=== PATIENT | male | born 1970 | race Caucasian/White ===

== ENCOUNTER 2016-11-04 23:24 | Inpatient (IN) | payer OTHER ==
[~2016-11-04] VITALS: Ht 175.2 cm; Wt 83.0 kg
--- NOTE | ~2016-11-04 | CON ---
[place], [place] REPORT OF CONSULTATION NAME: KIMMY RALPH UNIT #: [id number] ROOM: [facility] DOCTOR: HERNANDO GONZALEZ MD,WAN BIRTHDATE: [birth year] DOS: 11/05/2016 REASON FOR CONSULTATION: Assess the patient with acute respiratory failure with drug overdose. HISTORY OF PRESENT ILLNESS: This is a 46-year-old white male who has been brought to the Emergency Room. The patient subsequently took different p.r.n.'s for drug overdose with suicide attempt as well as alcohol. The patient has been noted with past history of multiple suicidal attempts at different times as well. He has been admitted to the hospital and noted with alleged intake of lisinopril, Celexa, and possible benzodiazepine. He has been brought to the hospital. The patient has been assessed in the Emergency Room. The patient was noted with changes in mental status at that time. The patient has been intubated and started on mechanical ventilation for the respiratory failure. The patient has been currently noted on the mechanical ventilator. He has been noted with mild QTc prolongation early this morning which has been treated with use of mag sulfate. The patient has been currently admitted to the hospital and receiving the supportive therapy as well as mechanical ventilation. He had not been noted with appropriate improvement in the neurologic status at the present time since hospitalization this morning. The patient remains on mechanical ventilation, assist controlled mode of mechanical ventilation as well. He has not been noted with any hemodynamic instability. REVIEW OF SYSTEMS: For the patient cannot be completed since the patient is already intubated, noted on mechanical ventilator. PAST MEDICAL HISTORY: 1. The patient reported multiple suicidal attempts in the past. The patient with history of major depression and dysthymic disorder and possible personality disorder. 2. History of past deep venous thrombosis, anticoagulation with Coumadin. 3. Past history of CVA. Whether the patient has any residual weakness at this time or not is not clearly known. 4. History of essential hypertension. 5. Past history of described coronary artery disease. 6. History of hyperlipidemia. 7. Past history of marijuana use as well. PAST SURGICAL HISTORY: Described as cardiac catheterization. SOCIAL HISTORY: The patient is not , has been noted with history of tobacco use, unknown quantity. There was history of alcohol use described as well. FAMILY HISTORY: The patient's father is 52 years old with history of coronary artery disease and myocardial infarction. Mother has a history of liver transplant as well. HOME MEDICATIONS: Exactly were unknown, but the patient has been noted with prescription of Xanax, Valium and Lexapro as well as the Coumadin. [place], [place] REPORT OF CONSULTATION NAME: KIMMY RALPH UNIT #: [id number] ROOM: [facility] DOCTOR: HERNANDO GONZALEZ MD,WAN BIRTHDATE: [birth year] DRUG ALLERGIES: Reported with no known drug allergies. PHYSICAL EXAMINATION: GENERAL: This is a 46-year-old male who has been noted currently intubated on mechanical ventilator, height of 5 feet 9 inches and weight of 183 pounds. BMI 27.0. VITAL SIGNS: Shows a temperature noted to be normal since hospitalization from 11/04/2016 until this morning, respiratory rate ranged between 18-24, heart rate of 120 with sinus tachycardia, normal heart rate of 80 and 65. The blood pressure lowest noted as 82/54, patient intubation after that blood pressures recovered and noted normal at 132/77. Intake 364, the output 400 mL since hospitalization. The pulse oxygen saturation on 50% oxygen was recorded 95% saturation. HEENT: The patient is currently intubated, noted on mechanical ventilator. The orogastric tube is in place. NECK: Supple. CARDIOVASCULAR: S1, S2 audible. LUNGS: The patient was noted with [id number]-[id number] decreased breath sounds without any wheezing or crackles. ABDOMEN: Soft, nontender. Bowel sounds present. EXTREMITIES: Show no edema, clubbing or cyanosis. LABORATORY DATA: The urine drug screen for the patient noted THC greater than 50. Ammonia level was noted 23. BMP of the patient on admission, 11/04/2016, was noted essentially normal BMP, except low calcium, but it is not corrected with the albumin. CBC this morning for the patient, WBC count 12.0, hemoglobin 12.7, hematocrit 37.4, platelet count was normal. CBC of the patient that was done previously, WBC count of 12.0, hemoglobin 12.8, hematocrit 37.4, and platelet count was normal. Lactic acid 1.4 early this morning on admission. The INR this morning was noted at 1.[address] scan of the head for the patient, which was done without contrast, 11/05/2016, in the Emergency Room does not show any acute intracranial pathologies. BMP repeated this morning again was noted as normal BMP for this patient. PT/PTT was noted this morning, repeated again, INR of 1.8, PTT 37. Endotracheal aspirate culture for this patient was noted as pending. Gram stain showed moderate white blood cells, few epithelial cells, few gram-positive cocci in pairs and chains, few gram-negative diplococci as well. The arterial blood gas of the patient is 100% oxygen, pH of 7.20, pCO2 of 46, pO2 of 305. Chest x-ray of patient shows endotracheal tube in appropriate position. NG tube in the stomach, mild increased pulmonary venous congestion marking was noted for the patient bilaterally. There were no gross pleural effusions. IMPRESSION: 1. The patient who has been currently noted with acute respiratory failure secondary to drug overdose related to the Celexa, questionable intake of lisinopril as well. Questionable intake for this patient of Xanax and Valium. The drug screen was noted negative for any of those drugs and only noted positive for THC. 2. The patient with change in mental status secondary to drug overdose. [place], [place] REPORT OF CONSULTATION NAME: KIMMY RALPH UNIT #: [id number] ROOM: [facility] DOCTOR: HERNANDO GONZALEZ MD,[facility] BIRTHDATE: [birth year] 3. Acute metabolic and respiratory acidosis secondary to acute drug overdose. 4. History of chronic nicotine dependence. 5. History of alcohol use as well. 6. History of deep venous thrombosis, on anticoagulation, which has noted subtherapeutic INR for this patient at the present time. PLAN OF TREATMENT: Monitor neuro status. The patient has been already given the magnesium sulfate for the mild prolongation QTc interval which is noted, QRS was noted normal. The elevation of CPK and MB in patient, most likely noted as drug induced. Early rhabdomyolysis in patient very likely as the CPK for this patient was noted to be mildly elevated at 428 with MB of 5.3, troponin remains normal. However, cardiac etiology would be considered as well. History of past multiple suicidal attempts in a patient with prolonged psychiatric history including major depression and dysthymic disorder. Plan of treatment: At this time, the feeding will be placed on hold for this patient for the next 24 hours as the patient remains on mechanical ventilator, will be started after that. All the ventilator bundle management has been ordered including use of Peridex. Continue IV Protonix. Continue IV midazolam for patient per recommendation of the drug control center for the sedation purposes. Monitor for any abnormal seizures. Continue to closely monitor mental status. Usual care. Supportive plan of therapy and management. DVT prophylaxis with the use of the Coumadin will suffice. The Coumadin could be resumed for the home dose as well. Supportive plan of therapy and management. Usual treatment. Current finding was noted as noncardiogenic pulmonary edema noted early for this patient related to acute drug overdose. Repeat chest x-ray in the morning as well as order another arterial blood gases to reassess the patient and then make any further change in mechanical ventilation accordingly. Other supportive therapy, plan and management and care. Usual treatment. Supportive care and other medical management, plan of care. Alcohol level was not done for this patient on admission as the patient took the alcohol in the form of beer. A new level for the patient will be ordered today to assess. Bronchodilators will be ordered to continue mobilized secretion for patient while on the mechanical ventilator. Repeat another chest x-ray in the morning as well to reassess the current pulmonary problem. No antibiotic will be needed as there were no signs of acute aspiration. Pneumonia, even if it occurs, it may be considered noninfectious etiology at this time. Total time for pulmonary critical care evaluation and management was 38 minutes. [place], [place] REPORT OF CONSULTATION NAME: KIMMY RALPH UNIT #: [id number] ROOM: [facility] DOCTOR: WAN HARKINS MD BIRTHDATE: [birth year] WAN VILLAGOMEZ MD CM:CONSTR:REPORT OF CONSULTATION 1300 11/06/16 0125 interface
--- NOTE | ~2016-11-04 | PR ---
[place], [place] PROGRESS NOTE NAME: KIMMY RALPH UNIT #: [id number] ROOM: [facility] DOCTOR: WAN HARKINS MD BIRTHDATE: [birth year] DOS: 11/14/2016 SUBJECTIVE: She has been successfully liberated from mechanical ventilator on Monday. He has done well. The patient does not show any symptoms of stridor, coughing, sputum expectoration. ____ noted much more awake and alert at this time. Oxygen supplementation was given for the patient in the form of the nasal cannula. This morning, the patient was seen, he was comfortably resting on his bed. OBJECTIVE: VITAL SIGNS: Showed normal temperature, respiratory rate 19, heart rate 61, blood pressure 149/84____. Pulse oxygen saturation of the patient recorded as 97% saturation on room air. HEENT: Examination shows no new change. NECK: Supple. CARDIOVASCULAR: S1, S2 audible. LUNGS: The patient noted without any wheezing or crackles at the present time. ABDOMEN: Soft, nontender. IMPRESSION: 1. The patient with resolving acute respiratory failure, status post drug overdose. The patient with several medications appeared to be stable at this time. 2. Resolving acute tracheobronchitis with Staphylococcus aureus. 3. History of chronic anticoagulation. The patient currently getting the Coumadin for patient with gradual improvement of the INR with in therapeutic range, still noted subtherapeutic with adjustment of the Coumadin. PLAN OF TREATMENT: From the pulmonary standpoint, the patient would be noted ready for patient discharged to the psychiatric facility for further medical management. In the meantime, continue the patient on current therapy, plan of care as in progress. Usual care. Supportive care. Antibiotic will be switched over from intravenous to oral formulation for patient, as Levaquin for tracheobronchitis Staph aureus. [place], [place] PROGRESS NOTE NAME: KIMMY RALPH UNIT #: [id number] ROOM: [facility] DOCTOR: WAN HARKINS MD BIRTHDATE: [birth year] WAN VILLAGOMEZ MD CM:PNTRANS [id number] WAN GONZALEZ MD 11/14/16 6347 interface
--- NOTE | ~2016-11-04 | CON ---
[place], [place] REPORT OF CONSULTATION NAME: KIMMY RALPH UNIT #: [id number] ROOM: [facility] DOCTOR: HERANNDO GONZALEZ MD,WAN BIRTHDATE: [birth year] DATE: 11/09/16 PULMONARY CRITICAL CARE MANAGEMENT The patient remains intubated. The patient is successful without any complications. He has been started on IV Ativan drip, which has been currently administered 30 mg per hour administration. The patient was noted comfortable at this time without any distress noted. The NG tube of the patient remains in place which has been introduced for the feeding purposes. He has been still noted with excessive secretion production, which has been suctioned out intermittently from the endotracheal aspirate. He remains on the anticoagulation as well. The patient has been noted without any hemodynamic instability. The rectal temperature elevation was noted for this patient intermittently at times. PHYSICAL EXAMINATION: VITAL SIGNS: Highest temperature noted at 101.2 degrees Fahrenheit to normal temperature. The respiratory rate 15-16, heart rate 79-78, blood pressure 106/66-96/53. HEENT: Shows the patient remains orally intubated successfully orogastric tube is in place. NECK: Supple. CARDIOVASCULAR SYSTEM: S1, S2 is audible. LUNGS: The patient was noted without any wheezing or crackles at the present time. ABDOMEN: Soft, nontender. LABORATORY DATA: The chest x-ray of the patient was noted free of any acute major pulmonary infiltration, which were visible. PT/INR today was noted 1.6, which is subtherapeutic. The arterial blood gas, the patient, pH of 7.47, pCO2 of 41, pO2 of 92.6 noted on 30% oxygen assist control mode of mechanical ventilation. BMP today was noted normal BUN and creatinine. Potassium 3.4 that was mildly decreased. IMPRESSION: 1. The patient with acute tracheobronchitis. The patient can be completely excluded for this patient with recent unresponsiveness of the patient and drug overdose with the patient and delirium was also noted. Maximal withdrawal for patient's baclofen was noted usually requiring use of the IV Ativan and reintubation. 2. Rule out any upper airway pathology such as obstruction and other findings. 3. Mild hypokalemia. 4. History of multiple prior suicidal attempts hospitalization, after the patient attempted acute suicide. PLAN OF TREATMENT: Continue nutritional support as tolerated. Continue Ativan, the dose will be gradually decreased the patient weaning off for the next 24 hours prior to possible consideration of liberation from mechanical ventilation. Monitor results of the endotracheal aspirate for this patient at the present time. The temperature noted low grade for the patient, which will monitor. Preliminary culture of the bronchial washing shows normal isaac. Other supportive therapy, plan of management care and treatment. Ventilator bundle management remains in progress as well. Usual care. Total time for pulmonary and critical care evaluation and management was 34 minutes. [place], [place] REPORT OF CONSULTATION NAME: KIMMY RALPH UNIT #: [id number] ROOM: [facility] DOCTOR: WAN HARKINS MD BIRTHDATE: [birth year] WAN HARKINS MD CM:CONSTR:REPORT OF CONSULTATION 1009 11/14/16 1502 SERA ORNELAS MIS.R
--- NOTE | ~2016-11-04 | CON ---
[place], [place] REPORT OF CONSULTATION NAME: KIMMY RALPH UNIT #: [id number] ROOM: [facility] DOCTOR: EMILY RUVALCABA ED.D) BIRTHDATE: [birth year] DOS: 11/14/2016 HISTORY OF PRESENT ILLNESS: Kimmy Ralph is a 46-year-old male referred by Dr. Potter for an evaluation following a suicide attempt. I initially saw this patient on 11/07/2016; however, he was intubated, shortly thereafter and I could not really communicate with him whatsoever. He is presently in the Intensive Care Unit at [facility]. He states that he is and has two children. He has applied for his SSI. His family physician is Dr. Galaviz and his medical history is pertinent for TIA, CVA, hypertension, hypercholesterolemia, DVT, alcohol abuse, and major depressive disorder. His medications have included lisinopril, Celexa, and baclofen. He states he drinks at least 6 beers each day and smokes 2 packs of cigarettes per day. This patient was awake, alert, and oriented in all three spheres. He denies any suicidal ideation or plan. He understands that he is in the hospital because he attempted suicide, but is no longer suicidal. He states he has attempted suicide in the past and was hospitalized in [facility] in [place], [place], several years ago. He does follow with Dr. Amos Waite at psych care here in [place]. Dr. Waite has prescribed Valium and Xanax for this patient. He also was on Celexa, but apparently overdosed on his Celexa. This patient states that he is going to continue to follow with Dr. Waite for both counseling and medication management. He states he is not suicidal now and he is ready to go home once he is medically stable. There is nothing to prevent discharging this patient home because he is denying any suicidal ideation or plan. DIAGNOSES: 1. Major depressive disorder, recurrent. 2. Alcohol abuse. RECOMMENDATIONS: 1. The patient should follow with Dr. Waite at [facility] here in [place]. 2. This patient may be discharged home when he is medically stable. Thank you very much for this consult. EMILY RUVALCABA ED.D CM:CONSTR:REPORT OF CONSULTATION 1702 11/15/16 0227 interface NOEL POTTER MD
--- NOTE | ~2016-11-04 | PR ---
[place], [place] PROGRESS NOTE NAME: KIMMY RALPH UNIT #: [id number] ROOM: [facility] DOCTOR: HERNANDO GONZALEZ MD,WAN BIRTHDATE: [birth year] DOS: 11/10/2016 PULMONARY AND CRITICAL CARE EVALUATION AND MANAGEMENT SUBJECTIVE: He has been continued on IV Ativan drip. Currently the patient has been getting 8 mg of IV Ativan. The mental status has been noted improving. The patient was noted following vocal commands without any distress. The patient remains orally intubated. The culture of the endotracheal aspirate noted as Staph aureus. The patient was started on the Levaquin and further management. The secretion production has been still noted intermittently. OBJECTIVE: VITAL SIGNS: For the patient which has been recorded showed the temperature of the patient noted as normal. Respiratory rate of the patient recorded as 14-16. Heart rate 79-76, blood pressure 124/77-130/80. Intake for the patient is 4040, output 2900 mL. Positive fluid balance approximately 1800 mL, pulse oxygen saturation 95% saturation was recorded as 95%. HEENT: The patient remained orally intubated, orogastric tube is in place. NECK: Supple. CARDIOVASCULAR SYSTEM: S1, S2 audible. LUNGS: The patient was noted without any wheezing or crackles at the present time. ABDOMEN: Soft, nontender. LABORATORY DATA: Endotracheal aspirate noted to have a growth of gram-positive cocci and Staph aureus which noted sensitive to multiple antibiotics including fluoroquinolones. The CMP of the patient done, this morning shows normal BUN and creatinine and other electrolytes. Culture of the urine showed no bacterial growth in 24 hours. PT/INR today noted 1.7, which is subtherapeutic. CBC this morning, hemoglobin 10.1, hematocrit 29.8, normal WBC count and platelet count. CT scan of the chest for the patient that was done yesterday for outpatient ordered by the primary care attending was reviewed. A small pleural fluid noted bilaterally without any evidence of pulmonary infiltration was noted. There was area of consolidation. IMPRESSION: 1. The patient who has been currently noted with acute tracheobronchitis with Staph aureus patient with acute respiratory failure, status post intentional drug overdose with baclofen and also with Celexa. 2. Improvement in mental status was continued as well. 3. Possible edema of the upper airways. PLAN OF TREATMENT: Limited inspection patient was done for the patient with the help of the bronchoscope looking at the vocal cord. The vocal cords were not visualized for patient because of crowding of some structures. There was no definitive mass lesion for this patient, which was grossly visible. The endotracheal tube and the NG tube were noted in appropriate position. The patient's sedation would be gradually decreased and discontinued and after that the patient will be planned for extubation with monitoring closely, post-extubation he will be ordered to resume epinephrine if he develops stridor. [place], [place] PROGRESS NOTE NAME: KIMMY RALPH UNIT #: [id number] ROOM: [facility] DOCTOR: HERNANDO GONZALEZ MD,WAN BIRTHDATE: [birth year] He may require to be reintubated for this patient after that. The patient has been already started antibiotic for acute tracheobronchitis with the Staphylococcus aureus with Levaquin. Bronchodilators at this time to be continued. Continuation of other supportive care including feeding. The orogastric tube will be changed to the NG tube for the patient for the feeding since the patient will be kept n.p.o. initially to prevent any aspiration until the mental status completely resolves. Other supportive therapy, plan of management, care and treatment plan. Supportive care. Usual treatment and care. Total time for pulmonary and critical care evaluation and management was 38 minutes. WAN VILLAGOMEZ MD CM:PNTRANS [id number] WAN GONZALEZ MD 11/10/16 1428 interface
--- NOTE | ~2016-11-04 | CON ---
[place], [place] REPORT OF CONSULTATION NAME: KIMMY RALPH UNIT #: [id number] ROOM: [facility] DOCTOR: NOEL POTTER MD BIRTHDATE: [birth year] DOS: 11/05/2016 CHIEF COMPLAINT: The patient was intubated and nonverbal. HISTORY OF PRESENT ILLNESS: This is a 46-year-old white male who presented to the Emergency Room at [facility] and subsequently sent to the ICU after polysubstance overdose including alcohol. The patient apparently took lisinopril, Celexa, baclofen, and washed it down with four 24-ounce beers. There is also the possibility that he mixed benzodiazepines. A review of his medication list showed that he just recently got a Valium and Xanax prescription filled from Dr. Daniel. In addition, he then got a Celexa prescription filled from his primary care doctor. The patient does have a lengthy psychiatric history with multiple overdose attempts as well as a previous history of cutting. The patient had stated before that if he had a gun, he would have already shot himself; instead, he took this overdose in an apparent suicide attempt. MENTAL STATUS: Limited because I could not examine the patient. DIAGNOSES: Major depression, recurrent, severe; dysthymic disorder; and probable borderline personality disorder. PLAN: Given the severity of this overdose attempt, I do think an inpatient psychiatric hospitalization is warranted at this time to attempt crisis stabilization and further assess lethality. I also think he should sign a release of information, allowing us to contact his providers so that they could know that he is doctor shopping and getting multiple prescriptions from other providers. Given his lethality, this is not a good idea. I would strongly recommend consulting Dr. Stalin Galo to determine a second opinion regarding his need for inpatient stay. NOEL POTTER MD CM:CONSTR:REPORT OF CONSULTATION 0851 11/05/16 1228 interface
--- NOTE | ~2016-11-04 | PR ---
[place], [place] PROGRESS NOTE NAME: KIMMY RALPH UNIT #: [id number] ROOM: [facility] DOCTOR: HERNANDO GONZALEZ MD,WAN BIRTHDATE: [birth year] DOS: 11/11/2016 PULMONARY AND CRITICAL CARE EVALUATION AND MANAGEMENT SUBJECTIVE: The patient remains on mechanical ventilator. The patient has been continued on the mechanical ventilator and liberated from the mechanical ventilation. Sedation has been completely discontinued patient in the last 24 hours. The mental status has been noted variable. The patient has been noted comfortable without any agitation this morning. Sedation remains off patient for the last 24 hours. There has not been 100% complete improvement noted in the mental status at the present time. The patient received the dose of the Ativan for the patient up to 11 mg per hour for the patient prior to complete discontinuation. Hemodynamically, the patient has been noted with low-grade fever. He has not been noted tachycardia with current antibiotic. The patient for the medical Staphylococcus aureus tracheobronchitis. OBJECTIVE: VITAL SIGNS: The patient shows low grade fever of 100.3 degrees Fahrenheit noted, otherwise normal temperature recorded. The respiratory recorded 17-20, heart rate of 86-79, blood pressure 125/76 for patient to 140/84. Intake is 3000; the output 3751 mL, pulse oxygen saturation 96 percent saturation was recorded. HEENT: The patient remained orally intubated with endotracheal tube #8 Korean. NECK: Supple. NG tube noted in place. CARDIOVASCULAR SYSTEM: S1, S2 audible. LUNGS: Noted without any wheeze or crackles at the present time. The breaths are noted mildly decreased bilaterally. ABDOMEN: Soft, nontender. EXTREMITIES: Showed no edema. LABORATORY DATA: INR today noted subtherapeutic 1.3. The BMP of the patient, which was done this morning, was noted normal BUN and creatinine. CBC this morning shows hemoglobin 9.8, hematocrit 29.5, WBC count was normal, platelet count was normal. Blood culture of the patient from the of this month, 2 sets does not show any bacterial growth. The chest x-ray of the patient that was done this morning shows NG tube and the endotracheal tube were both noted in appropriate position. IMPRESSION: 1. The patient who has been currently noted prolonged effects of sedation at this time for the Ativan for this patient with noted persistent change in mental status. 2. The patient with acute drug overdose. The patient with the use of Celexa and the muscle relaxants for the patient such as baclofen. 3. The patient with suboptimal anticoagulation noted at this time with the decreased INR for the patient Coumadin has been continued to be reiterated to maintain a therapeutic INR. 4. Acute tracheobronchitis Staph aureus for this patient as well. PLAN OF TREATMENT: Monitoring the respiratory status, the patient closely. [place], [place] PROGRESS NOTE NAME: KIMMY RALPH UNIT #: [id number] ROOM: [facility] DOCTOR: HERNANDO GONZALEZ MD,WAN BIRTHDATE: [birth year] Haldol could be given for patient p.r.n. for any agitated behavior. Monitor mental status. Consider long-term acute care facility consultation assessment. Continue nutritional support. Other supportive therapy, plan of management. Further change in treatment will be done based on the progression of the illness. Total time pulmonary and critical care evaluation and management was 35 minutes. WAN VILLAGOMEZ MD CM:PNTRANS [id number] WAN GONZALEZ MD 11/14/16 1051 interface
--- NOTE | ~2016-11-04 | PR ---
[place], [place] PROGRESS NOTE NAME: KIMMY RALPH UNIT #: [id number] ROOM: [facility] DOCTOR: HERNANDO GONZALEZ MD,WAN BIRTHDATE: [birth year] DOS: 11/07/2016 PULMONARY CRITICAL CARE EVALUATION AND MANAGEMENT SUBJECTIVE: The patient sedation remains off for this patient, was given Haldol one time for the patient and Ativan last night. The patient has been opening his eyes with the vocal commands and was minimally following vocal commands. He does not have signs of respiratory distress at this time, noted comfortable. The patient has been assessed for the patient this morning for liberation of mechanical ventilator. Rectal temperature noted mildly elevated at 101 degrees Fahrenheit. OBJECTIVE: VITAL SIGNS: Hemodynamically, vital signs of the patient which has been recorded shows the respiratory rate recorded as 18-24, heart rate 92-103, blood pressure 133/60-129/63. Intake is 4800 mL, output 2300 mL. Pulse oxygen saturation with the mechanical ventilator noted as 98% saturation. HEENT: Examination shows the patient is intubated. NECK: Supple. CARDIOVASCULAR SYSTEM: S1, S2 audible. LUNGS: Noted clear. There was no wheezing or crackles. ABDOMEN: Soft, nontender. LABORATORY DATA: Blood culture showed no bacterial growth for this patient in the last 24 hours that was done on 11/05/2016. BMP of the patient noted normal BUN and creatinine. The CPK was still noted elevated 4103 with MB elevated at 14.2. AST was mildly elevated 145, bilirubin 1.4. Phosphorus was 1.8. Urine culture showed no bacterial growth. Chest x-ray, 1 view, which was done this morning for the patient was reviewed, showed endotracheal tube in place without any acute infiltration. INR today noted 1.8, which is still subtherapeutic. CBC of the patient, WBC count 12.9, hemoglobin 10.8, hematocrit 31.6, platelet count of 207,000. ABG this morning, pH of 7.39, pCO2 of 39, pO2 of 128 on 30% oxygen supplementation. IMPRESSION: 1. The patient with acute respiratory failure for this patient, change in mental status and has been liberated from mechanical ventilator this morning. Post-extubation, the patient has been assessed. The patient was noted to be partial improvement in the follow of vocal commands. She has been noted comfortable at this time. 2. The patient with acute rhabdomyolysis secondary to acute drug overdose for this patient has been considered. 3. Resolution of any cardiac dysrhythmia or QTC prolongation. 4. History of multiple suicidal ideation of the patient and suicidal attempt at this time for this patient on admission as well. 5. Mild alcohol intoxication of the patient which has been resolved. 6. Mild hypophosphatemia as well. PLAN OF TREATMENT: Continue IV fluids, bronchodilators. Keep the patient n.p.o., monitor mental status of the patient closely. Continue multivitamins of [place], [place] PROGRESS NOTE NAME: KIMMY RALPH UNIT #: [id number] ROOM: [facility] DOCTOR: HERNANDO GONZALEZ MD,WAN BIRTHDATE: [birth year] the patient infusion and the normal saline. P.r.n. order of Haldol for the patient ordered 5 mg every 4 hours p.r.n. for any agitation, monitor aspiration precautions. Supplementation of the phosphorus intravenously of the patient's sodium phosphate. The patient could be assessed later on for the clear liquids if tolerated, may be advanced to usual diet. Continuation of DVT prophylaxis. Other supportive therapy, plan of management and care as previously. Continue psychiatric followup as well. Total time of pulmonary critical care evaluation and management was 38 minutes. WAN VILLAGOMEZ MD CM:PNTRANS 1019 WAN GONZALEZ MD 11/08/1699 interface
--- NOTE | ~2016-11-04 | PR ---
[place], [place] PROGRESS NOTE NAME: KIMMY RALPH UNIT #: [id number] ROOM: [facility] DOCTOR: HERNANDO GONZALEZ MD,WAN BIRTHDATE: [birth year] DOS: 11/06/2016 PULMONARY CRITICAL CARE EVALUATION AND MANAGEMENT SUBJECTIVE: The patient has been noted restless on the bed, currently getting IV Versed. He has not been noted with any acute hemodynamic instability. The patient also remains afebrile. There has not been any evidence of a marked excessive secretion production from the endotracheal tube was noted. OBJECTIVE: VITAL SIGNS: Showed normal temperature, respiratory rate 12-18, heart rate of 71-63. Blood pressure for the patient recorded as 104/62-106/66. Intake for patient was 3500 mL, output 4800 mL. Pulse oxygen saturation on 30% oxygen 98% saturation recorded. HEENT: Examination shows no new change. NECK: Supple. CARDIOVASCULAR SYSTEM: S1, S2 is audible. LUNGS: The patient was noted without any wheezing or crackles at the present time. ABDOMEN: Soft, nontender. EXTREMITIES: Shows no edema. LABORATORY DATA: CMP this morning for the patient noted BUN 8, creatinine 0.61. Alkaline phosphatase mildly elevated at 124, total bilirubin 1.3. CPK 3079. Phosphorus 2.0. Calcium was 7.9, which was not adjusted to the albumin. The endotracheal aspirate culture was noted as normal isaac. Preliminary final culture results were pending from 15 of this month. INR today was noted at 1.7, which is subtherapeutic. Arterial blood gas on 30% oxygen, pH of 7.35, pCO2 30, pO2 110. Ethyl alcohol level literally noted less than 3. Chest x-ray of the patient that was done this morning for the patient was noted without any acute pulmonary infiltration. Endotracheal tube for the patient was not clearly visible, most likely lining up with line of NG tube. IMPRESSION: 1. The patient with acute respiratory failure with drug overdose secondary to Celexa. 2. Some agitation for the patient was noted. 3. Abnormal liver function testing for this patient most likely related to the current mild rhabdomyolysis for the patient with elevation of CPK level. BUN and creatinine of the patient was noted as normal. 4. History of multiple past suicidal attempts. 5. Chronic anticoagulation for the patient with history of past deep venous thrombosis. PLAN OF TREATMENT: Discontinue sedation for the patient completely at this time. Assessed the mental status for the patient once the patient noted improvement in the mental status, he will be considered liberation from mechanical ventilator. Continue with the other previous treatment as in progress. Hold off the feeding at least until later today if the patient will not be extubated, he will be started on the nutritional support. DVT [place], [place] PROGRESS NOTE NAME: KIMMY RALPH UNIT #: [id number] ROOM: [facility] DOCTOR: HERNANDO GONZALEZ MD,WAN BIRTHDATE: [birth year] prophylaxis in the form of the Coumadin will be sufficed. Continuation of the ventilator bundle management. Usual care. Other supportive plan of management and therapies. Total time of pulmonary critical care evaluation and management was 32 minutes. WAN VILLAGOMEZ MD CM:PNTRANS [id number] WAN GONZALEZ MD 11/07/16 0124 interface
--- NOTE | ~2016-11-04 | CON ---
[place], [place] REPORT OF CONSULTATION NAME: KIMMY RALPH UNIT #: [id number] ROOM: [facility] DOCTOR: EMILY RUVALCABA ED.D (HEMALATHA) BIRTHDATE: [birth year] DOS: 11/07/2016 HISTORY OF PRESENT ILLNESS: The patient is a 46-year-old male referred by Dr. Potter for an evaluation following a suicide attempt. At the present time, he is in the intensive care unit at [facility]. He apparently took multiple medications including lisinopril, Celexa, baclofen, four 24-ounce beers. He does have a medical history of TIA, CVA, hypertension, hypercholesterolemia, deep vein thrombophlebitis and cardiac balloon. He has been treated by Dr. Wa[facility] here in [place]. He apparently has attempted suicide on multiple occasions according to the report. At the present time, he has just been extubated and I will evaluate him completely on Tuesday, November 08, 2016. DIAGNOSIS: Major depressive disorder, recurrent. Thank you very much for this consult. EMILY RUVALCABA ED.D CM:CONSTR:REPORT OF CONSULTATION 1309 11/08/16 0122 interface NOEL POTTER MD
--- NOTE | ~2016-11-04 | CON ---
[place], [place] REPORT OF CONSULTATION NAME: KIMMY RALPH UNIT #: [id number] ROOM: [facility] DOCTOR: SHILPA REYEZ BIRTHDATE: [birth year] DOS: 11/12/2016 PSYCH CONSULT HISTORY OF PRESENT ILLNESS: This patient was brought into the ED where he had taken 40 or more pills of lisinopril, Celexa, and baclofen. He had consumed alcohol and attempted to commit suicide. He has had multiple suicide attempts in the past. He also tested positive for marijuana. A female was present in the emergency room. He had been drinking all day. She called him an idiot and confirmed that he had attempted suicide in the past and stated that if he had a gun he had probably already done it by now. The patient has a history of depression. I could not gather more information, the patient was just extubated this morning, but still quite lethargic and groggy. PAST MEDICAL HISTORY: Depression, DVT, CVA, hyperlipidemia, hypertension, MT, TIAs, marijuana abuse, has had a cardiac cath in the past. He does abuse alcohol and is a smoker. DIAGNOSES: AXIS I: Major depression, severe. MENTAL STATUS: The patient is alert and oriented. Over the next couple of days, I anticipate this will clear a little bit more. He does seem depressed. Could not recall all the antidepressants he has been on in the past. We may need to reach out to the pharmacy to see if he can get some kind of medication or family member's medication history as far as what medications and antidepressants and such he has been on. There are no overt signs of auditory or visual hallucinations, delusions, paranoia, d[place] or hypomania. PLAN: At this point in time, I want the patient to remain extubated, I want to make sure, it is successful extubation, He kind of can wake up from the sedation. He had received some p.r.n. Haldol within the last 24 hours. It should also be noted that his chemistries, his creatinine is still off, his albumin is low, some of his a.m. labs are still pending. He is receiving IV rehydration. At this point in time, probably over the next 24-48 hours, I am not going to start any kind of antidepressant. I want to see if we can find out through nursing and family members what he has been on in the past or if he clears and can remember what he has been on in the past or we can reach out to his pharmacy. Also, I see that Yaneth Streeter and Dr. Galo both had been consulted. Dr. Galo is out of town. I would like a psychologist to talk to him. I think he needs to at least be in the system, some form of regular therapy is going to be more beneficial than just medications since this is not the first attempt at suicide. I will continue to look at the labs over the next couple of days as his creatinine improves and we get some clarification on medications he has been on in the past. I want to be cautious and make sure there is no sedating qualities or increased caution with kidney and liver function since he does have a history of overdosing on pills. Again, I will wait for the psychologist's evaluation and follow up on past antidepressants and antipsychotics he has been on. [place], [place] REPORT OF CONSULTATION NAME: KIMMY RALPH UNIT #: [id number] ROOM: [facility] DOCTOR: SHILPA REYEZ BIRTHDATE: [birth year] ETTA REYEZ CNP CM:CONSTR:REPORT OF CONSULTATION 1006 11/14/16 0518 interface
--- NOTE | ~2016-11-04 | PROC NOTE ---
[place], [place] PROCEDURE NOTE NAME: KIMMY RALPH UNIT #: [id number] ROOM: [facility] DOCTOR: JESSI JONAS DO BIRTHDATE: [birth year] DOS: 11/05/2016 PROCEDURE: Endotracheal intubation. TIME OF THE PROCEDURE: 2:30 a.m. INDICATION: Respiratory distress. ATTENDING: Dr. Villeda. DESCRIPTION OF PROCEDURE: A timeout was performed verifying the correct patient, procedure site, positioning, and special equipment. The patient was placed in a flat position. Sedation was obtained using 100 of etomidate and additionally with 20 of succinylcholine. The patient was easily ventilated using an Ambu bag. Nasopharyngeal airway was also present at the time. The MAC 4 blade was used and inserted into the oropharynx at which time there was a grade 1 view of the vocal cords. An 8-Cymraes endotracheal tube was inserted and visualized going through the vocal cords. The stylet was removed. Coloremic change was visualized on the CO2 meter. Breath sounds were heard in both lung worrell equally and no sounds were heard over the epigastrium. The endotracheal tube was placed at 23 cm measured at the teeth. Dr. Garcia was present for the entire procedure. Chest x-ray was ordered to assess for pneumothorax and verify endotracheal placement. ESTIMATED BLOOD LOSS: Zero. The patient tolerated the procedure well and there were no complications. Jessi Jonas DO OTNY VILLEDA DO CM:PROCNOTE:PROCEDURE NOTE [id number] JESSI JONAS DO
--- NOTE | ~2016-11-04 | CON ---
[place], [place] REPORT OF CONSULTATION NAME: KIMMY RALPH UNIT #: [id number] ROOM: [facility] DOCTOR: HERNANDO GONZALEZ MD,WAN BIRTHDATE: [birth year] DATE: 11/09/16 PULMONARY CRITICAL CARE MANAGEMENT The patient remains intubated. The patient is successful without any complications. He has been started on IV Ativan drip, which has been currently administered 30 mg per hour administration. The patient was noted comfortable at this time without any distress noted. The NG tube of the patient remains in place which has been introduced for the feeding purposes. He has been still noted with excessive secretion production, which has been suctioned out intermittently from the endotracheal aspirate. He remains on the anticoagulation as well. The patient has been noted without any hemodynamic instability. The rectal temperature elevation was noted for this patient intermittently at times. PHYSICAL EXAMINATION: VITAL SIGNS: Highest temperature noted at 101.2 degrees Fahrenheit to normal temperature. The respiratory rate 15-16, heart rate 79-78, blood pressure 106/66-96/53. HEENT: Shows the patient remains orally intubated successfully orogastric tube is in place. NECK: Supple. CARDIOVASCULAR SYSTEM: S1, S2 is audible. LUNGS: The patient was noted without any wheezing or crackles at the present time. ABDOMEN: Soft, nontender. LABORATORY DATA: The chest x-ray of the patient was noted free of any acute major pulmonary infiltration, which were visible. PT/INR today was noted 1.6, which is subtherapeutic. The arterial blood gas, the patient, pH of 7.47, pCO2 of 41, pO2 of 92.6 noted on 30% oxygen assist control mode of mechanical ventilation. BMP today was noted normal BUN and creatinine. Potassium 3.4 that was mildly decreased. IMPRESSION: 1. The patient with acute tracheobronchitis. The patient can be completely excluded for this patient with recent unresponsiveness of the patient and drug overdose with the patient and delirium was also noted. Maximal withdrawal for patient's baclofen was noted usually requiring use of the IV Ativan and reintubation. 2. Rule out any upper airway pathology such as obstruction and other findings. 3. Mild hypokalemia. 4. History of multiple prior suicidal attempts hospitalization, after the patient attempted acute suicide. PLAN OF TREATMENT: Continue nutritional support as tolerated. Continue Ativan, the dose will be gradually decreased the patient weaning off for the next 24 hours prior to possible consideration of liberation from mechanical ventilation. Monitor results of the endotracheal aspirate for this patient at the present time. The temperature noted low grade for the patient, which will monitor. Preliminary culture of the bronchial washing shows normal isaac. Other supportive therapy, plan of management care and treatment. Ventilator bundle management remains in progress as well. Usual care. Total time for pulmonary and critical care evaluation and management was 34 minutes. [place], [place] REPORT OF CONSULTATION NAME: KIMMY RALPH UNIT #: [id number] ROOM: [facility] DOCTOR: WAN HARKINS MD BIRTHDATE: [birth year] WAN HARKINS MD CM:CONSTR:REPORT OF CONSULTATION 1009 11/10/16 1730 SERA ORNELAS MIS.R
--- NOTE | ~2016-11-04 | PR ---
[place], [place] PROGRESS NOTE NAME: KIMMY RALPH UNIT #: [id number] ROOM: [facility] DOCTOR: HERNANDO GONZALEZ MD,WAN BIRTHDATE: [birth year] DOS: 11/08/2016 PULMONARY CRITICAL CARE MANAGEMENT SUBJECTIVE: The patient was extubated yesterday, was noted few hours later more agitation behavior. The patient has been following some of the vocal commands, but not completely. He was also described to be stridorous sound one time, was given racemic epinephrine with resolution of the stridor. The patient was noted with possibility of withdrawal from the use of the muscle relaxants taken by the patient as baclofen previously. The poison control was contacted the patient, that recommended the patient to be reintubated and started on use of the benzodiazepines. The patient has been reintubated by the Anesthesia Department during intubation. The anesthesiologist/APPLICATIONS DEVELOPMENT CONSULTANT described possibility of mass lesion in the laryngeal area to be excluded. The patient was successfully reintubated without any complications. Currently, the patient has been intubated. The patient remains on a mechanical ventilator. OBJECTIVE: VITAL SIGNS: For the patient, which has been recorded showed the temperature of the patient noted as normal. The respiratory rate of the patient recorded as 12-13. Heart rate 77-92, blood pressure 129/74-127/84. Temperature rectal is noted elevated at 101.2 degrees Fahrenheit, there are normal temperature. The pulse oxygen saturation of the patient recorded on 30% oxygen assist-controlled mode of mechanical ventilation 95% saturation. Intake is 2.590 liters, output 3100, negative 560 mL. HEENT: The patient currently orally intubated, orogastric has been reinserted. NECK: Supple. CARDIOVASCULAR: S1, S2 audible. LUNGS: The patient was noted without any wheezing or crackles. ABDOMEN: Soft, nontender. LABORATORY DATA: The arterial blood gas this morning on 40% oxygen, pH of 7.45, pCO2 of 38, pO2 of 141 on assist control mode mechanical ventilation. BMP: Glucose 122, BUN and creatinine was normal. Potassium 3.4. AST 74. Albumin 2.9, total protein 6.1, alkaline phosphatase normal. PT/INR was 2.1, which is today noted as therapeutic. Chest x-ray of the patient that was done, 1-view for the patient shows no acute pulmonary infiltration. Endotracheal tube and NG tube were both noted in appropriate position. IMPRESSION: 1. The patient drug overdose with the patient noticed lax and possibility baclofen for the patient with withdrawal symptoms. 2. The patient with acute respiratory failure, change in mental status. Reintubated yesterday successfully. 3. Rule out a laryngeal mass. 4. History of chronic deep venous thrombosis, currently noted therapeutic INR as well. 5. Mildly abnormal liver function test, etiology is unclear, maybe related to drug overdose or other reasons. [place], [place] PROGRESS NOTE NAME: KIMMY RALPH UNIT #: [id number] ROOM: [facility] DOCTOR: HERNANDO GONZALEZ MD,WAN BIRTHDATE: [birth year] PLAN OF TREATMENT: Continue sedation of the patient with benzodiazepines. The excessive secretion production has been noted endotracheal tube, which will be sent for Gram stain and culture. Mild respiratory alkalosis on O2, which will be corrected by the adjusting the tidal volume settings on the mechanical ventilator. Other supportive therapy, plan of management and care. Usual medical management, plan of care. Further treatment changes will be done based on the progression of the illness. Usual care. Feeding will be continued with the nutrition support for the patient as well. Usual care. Other treatment plan and management. Supportive care. ENT consultation of the patient has been ordered as well for assessment of possibility of laryngeal mass. The patient was recommended to be started on his usual dose of baclofen which was ordered as well. TIME SPENT: Total time pulmonary critical care evaluation and management was 38 minutes. WAN VILLAGOMEZ MD CM:PNTRANS 1207 WAN GONZALEZ MD 11/09/1633 interface
[~2016-11-04 23:24] MED LIST: 'XANAX0.5 MG PO; ACULAR 3 ML3 M1 OPH; AMOXICILLIN500 MG PO; ANAPROX DS550 MG PO; ASPIR LOW81 MG PO; ASPIRIN81 M1 PO; BACLOFEN20 M1 PO; BACTRIM DS 8001 TA1 PO; BACTROBAN OINT22 GM T; CITALOPRAM20 MG PO; CITALOPRAM40 MG PO; CLARITIN-D 12 H1 TAB PO; CLARITIN10 MG PO; COUMADIN5 M2 PO; Coumadin5 MG PO; GABAPENTIN300 MG PO; GABAPENTIN600 MG PO; GEMFIBROZIL600 MG PO; HYDROCODONE BIT1 T11 PO; KEFLEX500 MG PO; LIPITOR40 MG PO; LIPITOR80 MG PO; LISINOPRIL10 M1 PO; LISINOPRIL5 MG PO; LOPID600 MG PO; LOPRESSOR50 M1 PO; LOTRIMIN1% TP; Lopressor25 MG PO; METOPROLOL SR25 MG PO; METOPROLOL100 MG PO; METOPROLOL50 MG PO; MOTRIN800 MG PO; NAPROSYN500 MG PO; NATURE'S BLEND F1 MG PO; NEURONTIN600 MG PO; NICOTINE TRANSD1 TDM TD; NITROSTAT0.4 MG SL; NKHM; NORCET 500 MG-51 CAP PO; NORCO 10-325 T1 EACH PO; NORCO 325 MG-51 TAB PO; NORVASC10 MG PO; NORVASC5 MG PO; OMEPRAZOLE40 MG PO; TOBRADEX 0.1%-0.5 ML OPH; TOBREX OPHTH S2.5 ML OPH; TRAMADOL HCL50 MG PO; ULTRAM50 MG PO; VIBRAMYCIN100 MG PO; VICODIN 5/500 505 MG PO; VICODIN ES 7501 TAB PO; VITAMIN B150 MG PO; WARFARIN SOD5 MG PO; XANAX0.25 MG PO; XANAX0.5 MG PO; ZYPREXA5 M1 PO
[2016-11-04 23:25] VITALS: BP 106/66
[2016-11-04 23:54] VITALS: BP 106/61
[2016-11-05] VITALS (42 sets, daily range): BP systolic 82–176; BP diastolic 40–100
[2016-11-05] MEDS ORDERED: CELEXA10 MG PO (00:04)
[2016-11-05 00:59] LABS: BASO # 0.1 10*3/uL (0.0-0.1); BASO % 0.6 % (0.0-1.0); EOS # 0.3 10*3/uL (0.0-0.4); EOS % 2.4 % (1.0-4.0); HEMATOCRIT 37.4 % (42.0-52.0); HEMOGLOBIN 12.8 g/dl (14.0-18.0); LYMPH # 3.2 10*3/uL (1.3-4.4); LYMPH % 26.6 % (27.0-41.0); MEAN CORPUSCULAR HGB 31.1 pg (27.0-31.0); MEAN CORPUSCULAR HGB CONC 34.2 g/dl (33.0-37.0); MONO # 0.8 10*3/uL (0.1-1.0); MONO % 6.8 % (3.0-9.0); NEUT # 7.6 10*3/uL (2.3-7.9); NEUT % 63.4 % (47.0-73.0); PLATELET COUNT AUTOMATED 266 10*3/uL (130-400); RED BLOOD COUNT 4.11 10*6/uL (4.50-5.90)
[2016-11-05 01:09] LABS: INTERNATIONAL NORM RATIO 1.7 (2.0-3.5); PROTHROMBIN TIME 18.9 SECONDS (9.0-12.4)
[2016-11-05 01:11] LABS: ALKALINE PHOSPHATASE 54 U/L (45-117); BILIRUBIN, DIRECT 0.2 mg/dL (0.0-0.2); BILIRUBIN, TOTAL 0.6 mg/dl (0.2-1.0); BUN 16 mg/dl (7-24); CARBON DIOXIDE 20 mmol/L (21-32); CHLORIDE 99 mmol/L (98-107); EST GLOM FILT AFRICAN AMERICAN > 60 ml/min; GLUCOSE 66 mg/dL (65-99); MAGNESIUM 2.1 mg/dL (1.5-2.1); POTASSIUM 3.9 mmol/L (3.5-5.1); SGOT/AST 28 IU/L (3-35); SGPT/ALT 41 U/L (12-78); SODIUM 134 mmol/L (136-145); TOTAL PROTEIN 6.9 gm/dL (6.4-8.2)
[2016-11-05 01:12] LABS: TROPONIN I < 0.015 ng/ml (<0.045)
[2016-11-05 03:33] LABS: BUN 17 mg/dl (7-24); CARBON DIOXIDE 21 mmol/L (21-32); CHLORIDE 102 mmol/L (98-107); EST GLOM FILT AFRICAN AMERICAN > 60 ml/min; GLUCOSE 85 mg/dL (65-99); SODIUM 136 mmol/L (136-145)
[2016-11-05 03:45] LABS: URINE AMPHETAMINES < 1000 (1000ng/ml); URINE BARBITURATES < 200 (200ng/ml); URINE COCAINE < 300 (300ng/ml)
[2016-11-05 04:32] LABS: ABG BASE EXCESS -9.6 mmol/L (-2.0-2.0); ABG CO2 CONTENT 19.4 mmol/L (23-27); ABG TEMPERATURE 97.9 F (98.0-99.0); ARTERIAL BLOOD GAS PH 7.209 (7.35-7.45)
[2016-11-05 05:45] LABS: TROPONIN I 0.019 ng/ml (<0.045)
[2016-11-05 05:47] LABS: CKMB 5.3 ng/ml (0.5-3.6)
[2016-11-05 06:01] LABS: BASO % 0.3 % (0.0-1.0); EOS # 0.1 10*3/uL (0.0-0.4); EOS % 0.7 % (1.0-4.0); HEMATOCRIT 37.4 % (42.0-52.0); HEMOGLOBIN 12.5 g/dl (14.0-18.0); IG # 0.1 10*3/uL (0.0-0.1); LYMPH # 1.9 10*3/uL (1.3-4.4); LYMPH % 15.7 % (27.0-41.0); MEAN CELL VOLUME 92.6 fl (80.0-94.0); MEAN CORPUSCULAR HGB 30.9 pg (27.0-31.0); MEAN CORPUSCULAR HGB CONC 33.4 g/dl (33.0-37.0); MONO # 0.6 10*3/uL (0.1-1.0); MONO % 4.7 % (3.0-9.0); NEUT # 9.3 10*3/uL (2.3-7.9); NEUT % 77.9 % (47.0-73.0); PLATELET COUNT AUTOMATED 242 10*3/uL (130-400); RED BLOOD COUNT 4.04 10*6/uL (4.50-5.90)
[2016-11-05 06:03] LABS: BUN 17 mg/dl (7-24); CARBON DIOXIDE 20 mmol/L (21-32); CHLORIDE 102 mmol/L (98-107); EST GLOM FILT AFRICAN AMERICAN > 60 ml/min; FREE T4 0.88 ng/dl (0.76-1.46); GLUCOSE 88 mg/dL (65-99); MAGNESIUM 2.8 mg/dL (1.5-2.1); PHOSPHOROUS 4.6 mg/dL (2.5-4.9); POTASSIUM 4.1 mmol/L (3.5-5.1); SODIUM 134 mmol/L (136-145)
[2016-11-05 06:08] LABS: BILIRUBIN NEGATIVE (NEGATIVE); BLOOD 1+ (NEGATIVE); CLARITY CLEAR (CLEAR); COLOR YELLOW (YELLOW); GLUCOSE NEGATIVE (NEGATIVE); KETONE NEGATIVE (NEGATIVE); LEUKO ESTERASE NEGATIVE (NEGATIVE); NITRITE NEGATIVE (NEGATIVE); PROTEIN NEGATIVE (NEGATIVE); SPECIFIC GRAVITY >= 1.030 (1.005-1.030); UROBILINOGEN 0.2 E.U./dl (0.2-1.0)
[2016-11-05 06:10] LABS: THYROID STIM HORMONE (HS) 0.715 uIU/ml (0.358-4.75)
[2016-11-05 06:17] LABS: INTERNATIONAL NORM RATIO 1.8 (2.0-3.5); PROTHROMBIN TIME 19.4 SECONDS (9.0-12.4)
[2016-11-05 06:30] LABS: BACTERIA 1+; MUCOUS 2+
[2016-11-05 07:53] LABS: VITAMIN D, 25-HYDROXY 12.5 ng/mL (30-100)
[2016-11-05 07:55] LABS: FOLIC ACID > 24.00 ng/mL (>5.38)
[2016-11-05 13:21] LABS: CPK 2078 U/L (39-308)
[2016-11-05 13:24] LABS: CKMB 38.4 ng/ml (0.5-3.6); TROPONIN I < 0.015 ng/ml (<0.045)
[2016-11-05] MEDS ORDERED: CITALOPRAM40 MG PO ×2 (13:50→13:59)
[2016-11-05] MEDS ORDERED: NEURONTIN800 MG PO (13:51)
[2016-11-05] MEDS ORDERED: ZESTRIL20 MG PO (13:52)
[2016-11-05 13:53] LABS: ABG BASE EXCESS -6.4 mmol/L (-2.0-2.0); ABG HCO3 18.8 mmol/l (22-26); ABG TEMPERATURE 97.4 F (98.0-99.0); ARTERIAL BLOOD GAS PH 7.319 (7.35-7.45); ARTERIAL BLOOD GAS PO2 98.5 mmHg (80-90)
[2016-11-05] MEDS ORDERED: NATURE'S BLEND F1 MG PO (13:53)
[2016-11-05] MEDS ORDERED: BACLOFEN20 M1 PO (13:54)
[2016-11-05] MEDS ORDERED: ZYLOPRIM100 MG PO (13:54)
[2016-11-05] MEDS ORDERED: LOPID600 M1 PO (13:55)
[2016-11-05] MEDS ORDERED: LOTREL 10 MG-401 CA1 PO (13:56)
[2016-11-05] MEDS ORDERED: ASPIRIN ADULT L81 M2 PO (13:56)
[2016-11-05] MEDS ORDERED: COUMADIN6 M2 PO (13:57)
[2016-11-05] MEDS ORDERED: OMEPRAZOLE40 MG PO (13:58)
[2016-11-05] MEDS ORDERED: XANAX1 MG PO (14:00)
[2016-11-05] MEDS ORDERED: VALIUM10 MG PO (14:01)
[2016-11-05 18:04] LABS: CKMB 48.8 ng/ml (0.5-3.6); TROPONIN I < 0.015 ng/ml (<0.045)
[2016-11-05 18:22] LABS: CPK 2863 U/L (39-308)
[2016-11-06] VITALS (26 sets, daily range): BP systolic 100–136; BP diastolic 54–84
[2016-11-06 06:37] LABS: INTERNATIONAL NORM RATIO 1.7 (2.0-3.5); PROTHROMBIN TIME 19.1 SECONDS (9.0-12.4)
[2016-11-06 06:39] LABS: ALBUMIN 3.2 gm/dl (3.1-4.5); ALKALINE PHOSPHATASE 51 U/L (45-117); BILIRUBIN, TOTAL 1.3 mg/dl (0.2-1.0); BUN 8 mg/dl (7-24); CARBON DIOXIDE 22 mmol/L (21-32); CHLORIDE 108 mmol/L (98-107); EST GLOM FILT AFRICAN AMERICAN > 60 ml/min; GLUCOSE 67 mg/dL (65-99); MAGNESIUM 2.1 mg/dL (1.5-2.1); POTASSIUM 4.1 mmol/L (3.5-5.1); SGOT/AST 124 IU/L (3-35); SGPT/ALT 57 U/L (12-78); SODIUM 141 mmol/L (136-145); TOTAL PROTEIN 6.1 gm/dL (6.4-8.2)
[2016-11-06 06:41] LABS: ABG BASE EXCESS -3.7 mmol/L (-2.0-2.0); ABG CO2 CONTENT 22.2 mmol/L (23-27); ABG TEMPERATURE 98.2 F (98.0-99.0); ARTERIAL BLOOD GAS PH 7.354 (7.35-7.45)
[2016-11-06 07:19] LABS: CPK 3879 U/L (39-308)
[2016-11-06 13:04] LABS: CPK 3607 U/L (39-308)
[2016-11-06 13:06] LABS: TROPONIN I < 0.015 ng/ml (<0.045)
[2016-11-06 13:25] LABS: CKMB 32.6 ng/ml (0.5-3.6)
[2016-11-07] VITALS (9 sets, daily range): BP systolic 106–149; BP diastolic 57–96
[2016-11-07 04:18] LABS: ABG BASE EXCESS -0.5 mmol/L (-2.0-2.0); ABG CO2 CONTENT 24.3 mmol/L (23-27); ABG HCO3 23.2 mmol/l (22-26); ARTERIAL BLOOD GAS PH 7.397 (7.35-7.45)
[2016-11-07 05:46] LABS: ALBUMIN 3.3 gm/dl (3.1-4.5); ALKALINE PHOSPHATASE 47 U/L (45-117); BILIRUBIN, TOTAL 1.4 mg/dl (0.2-1.0); BUN 7 mg/dl (7-24); CARBON DIOXIDE 25 mmol/L (21-32); CHLORIDE 106 mmol/L (98-107); EST GLOM FILT AFRICAN AMERICAN > 60 ml/min; GLUCOSE 84 mg/dL (65-99); MAGNESIUM 1.6 mg/dL (1.5-2.1); PHOSPHOROUS 1.8 mg/dL (2.5-4.9); POTASSIUM 4.1 mmol/L (3.5-5.1); SGOT/AST 145 IU/L (3-35); SGPT/ALT 64 U/L (12-78); SODIUM 142 mmol/L (136-145); TOTAL PROTEIN 6.2 gm/dL (6.4-8.2)
[2016-11-07 05:58] LABS: BASO % 0.2 % (0.0-1.0); EOS % 0.1 % (1.0-4.0); HEMATOCRIT 31.6 % (42.0-52.0); HEMOGLOBIN 10.8 g/dl (14.0-18.0); IG # 0.1 10*3/uL (0.0-0.1); LYMPH % 7.4 % (27.0-41.0); MEAN CELL VOLUME 92.1 fl (80.0-94.0); MEAN CORPUSCULAR HGB 31.5 pg (27.0-31.0); MEAN CORPUSCULAR HGB CONC 34.2 g/dl (33.0-37.0); MEAN PLATELET VOLUME 11.6 fl (9.6-12.3); MONO % 7.7 % (3.0-9.0); NEUT # 10.8 10*3/uL (2.3-7.9); NEUT % 84.1 % (47.0-73.0); PLATELET COUNT AUTOMATED 207 10*3/uL (130-400); RED BLOOD COUNT 3.43 10*6/uL (4.50-5.90); RED CELL DISTRI WIDTH 12.7 % (0-14.5); WHITE BLOOD COUNT 12.9 10*3/uL (4.8-10.8)
[2016-11-07 06:08] LABS: INTERNATIONAL NORM RATIO 1.8 (2.0-3.5); PROTHROMBIN TIME 19.7 SECONDS (9.0-12.4)
[2016-11-07 06:14] LABS: CKMB 14.2 ng/ml (0.5-3.6); CPK 4103 U/L (39-308)
[2016-11-07 14:10] LABS: ORGANISM ID Not indicated. (.); SPECIMEN SOURCE Urine (.); STREPTOCOCCUS PNEUMONIAE AG Negative (Negative)
[2016-11-07 16:12] LABS: ABG BASE EXCESS -0.4 mmol/L (-2.0-2.0); ABG CO2 CONTENT 25.5 mmol/L (23-27); ABG HCO3 24.2 mmol/l (22-26); ABG TEMPERATURE 99.8 F (98.0-99.0); ARTERIAL BLOOD GAS PH 7.37 (7.35-7.45)
[2016-11-08] VITALS (13 sets, daily range): BP systolic 105–130; BP diastolic 62–85
[2016-11-08 05:17] LABS: ABG BASE EXCESS 3.1 mmol/L (-2.0-2.0); ABG CO2 CONTENT 27.7 mmol/L (23-27); ABG HCO3 26.5 mmol/l (22-26); ARTERIAL BLOOD GAS PH 7.458 (7.35-7.45)
[2016-11-08 05:35] LABS: BASO % 0.3 % (0.0-1.0); EOS # 0.1 10*3/uL (0.0-0.4); EOS % 1.1 % (1.0-4.0); HEMATOCRIT 34.1 % (42.0-52.0); HEMOGLOBIN 11.7 g/dl (14.0-18.0); IG # 0.1 10*3/uL (0.0-0.1); LYMPH # 1.5 10*3/uL (1.3-4.4); LYMPH % 13.7 % (27.0-41.0); MEAN CELL VOLUME 90.7 fl (80.0-94.0); MEAN CORPUSCULAR HGB 31.1 pg (27.0-31.0); MEAN CORPUSCULAR HGB CONC 34.3 g/dl (33.0-37.0); MEAN PLATELET VOLUME 11.2 fl (9.6-12.3); MONO # 0.9 10*3/uL (0.1-1.0); MONO % 8.2 % (3.0-9.0); NEUT # 8.3 10*3/uL (2.3-7.9); NEUT % 76.2 % (47.0-73.0); PLATELET COUNT AUTOMATED 183 10*3/uL (130-400); RED BLOOD COUNT 3.76 10*6/uL (4.50-5.90); RED CELL DISTRI WIDTH 12.7 % (0-14.5); WHITE BLOOD COUNT 10.8 10*3/uL (4.8-10.8)
[2016-11-08 05:57] LABS: ALBUMIN 2.9 gm/dl (3.1-4.5); BUN 6 mg/dl (7-24); CARBON DIOXIDE 33 mmol/L (21-32); CHLORIDE 102 mmol/L (98-107); EST GLOM FILT AFRICAN AMERICAN > 60 ml/min; GLUCOSE 122 mg/dL (65-99); MAGNESIUM 2.1 mg/dL (1.5-2.1); PHOSPHOROUS 2.2 mg/dL (2.5-4.9); POTASSIUM 3.4 mmol/L (3.5-5.1); SGOT/AST 74 IU/L (3-35); SGPT/ALT 51 U/L (12-78); SODIUM 140 mmol/L (136-145)
[2016-11-08 05:59] LABS: ALKALINE PHOSPHATASE 42 U/L (45-117); BILIRUBIN, TOTAL 0.8 mg/dl (0.2-1.0); TOTAL PROTEIN 6.1 gm/dL (6.4-8.2)
[2016-11-08 06:19] LABS: INTERNATIONAL NORM RATIO 2.8 (2.0-3.5); PROTHROMBIN TIME 32.1 SECONDS (9.0-12.4)
[2016-11-09] VITALS (20 sets, daily range): BP systolic 96–134; BP diastolic 50–83
[2016-11-09 05:24] LABS: BUN 9 mg/dl (7-24); CARBON DIOXIDE 32 mmol/L (21-32); CHLORIDE 102 mmol/L (98-107); EST GLOM FILT AFRICAN AMERICAN > 60 ml/min; GLUCOSE 124 mg/dL (65-99); POTASSIUM 3.4 mmol/L (3.5-5.1); SODIUM 140 mmol/L (136-145)
[2016-11-09 05:40] LABS: BILIRUBIN NEGATIVE (NEGATIVE); BLOOD 2+ (NEGATIVE); CLARITY SL CLOUDY (CLEAR); COLOR YELLOW (YELLOW); GLUCOSE TRACE (NEGATIVE); KETONE NEGATIVE (NEGATIVE); LEUKO ESTERASE NEGATIVE (NEGATIVE); NITRITE NEGATIVE (NEGATIVE); PROTEIN 1+ (NEGATIVE); UROBILINOGEN >= 8.0 E.U./dl (0.2-1.0)
[2016-11-09 05:46] LABS: ABG BASE EXCESS 6.2 mmol/L (-2.0-2.0); ABG HCO3 29.8 mmol/l (22-26); ABG TEMPERATURE 99.8 F (98.0-99.0); ARTERIAL BLOOD GAS PH 7.476 (7.35-7.45); ARTERIAL BLOOD GAS PO2 92.6 mmHg (80-90)
[2016-11-09 05:53] LABS: MUCOUS 1+; RBC 16-20 rbc/hpf (0-2); URINE REFLEX COMMENT YES (NO)
[2016-11-09 06:07] LABS: BASO % 0.1 % (0.0-1.0); EOS # 0.1 10*3/uL (0.0-0.4); EOS % 0.4 % (1.0-4.0); HEMATOCRIT 34.3 % (42.0-52.0); HEMOGLOBIN 11.4 g/dl (14.0-18.0); IG # 0.1 10*3/uL (0.0-0.1); LYMPH # 1.7 10*3/uL (1.3-4.4); LYMPH % 14.2 % (27.0-41.0); MEAN CELL VOLUME 91.2 fl (80.0-94.0); MEAN CORPUSCULAR HGB 30.3 pg (27.0-31.0); MEAN CORPUSCULAR HGB CONC 33.2 g/dl (33.0-37.0); MONO % 8.4 % (3.0-9.0); NEUT % 76.1 % (47.0-73.0); PLATELET COUNT AUTOMATED 199 10*3/uL (130-400); RED BLOOD COUNT 3.76 10*6/uL (4.50-5.90); RED CELL DISTRI WIDTH 12.9 % (0-14.5); WHITE BLOOD COUNT 11.9 10*3/uL (4.8-10.8)
[2016-11-09 06:18] LABS: INTERNATIONAL NORM RATIO 1.6 (2.0-3.5); PROTHROMBIN TIME 17.5 SECONDS (9.0-12.4)
[2016-11-09 10:04] LABS: MAGNESIUM 2.2 mg/dL (1.5-2.1); PHOSPHOROUS 2.8 mg/dL (2.5-4.9)
[2016-11-10] VITALS (19 sets, daily range): BP systolic 101–140; BP diastolic 60–89
[2016-11-10 06:24] LABS: BASO % 0.2 % (0.0-1.0); EOS # 0.2 10*3/uL (0.0-0.4); EOS % 1.7 % (1.0-4.0); HEMATOCRIT 29.8 % (42.0-52.0); HEMOGLOBIN 10.1 g/dl (14.0-18.0); INTERNATIONAL NORM RATIO 1.7 (2.0-3.5); LYMPH # 1.3 10*3/uL (1.3-4.4); LYMPH % 14.5 % (27.0-41.0); MEAN CELL VOLUME 91.7 fl (80.0-94.0); MEAN CORPUSCULAR HGB 31.1 pg (27.0-31.0); MEAN CORPUSCULAR HGB CONC 33.9 g/dl (33.0-37.0); MEAN PLATELET VOLUME 11.8 fl (9.6-12.3); MONO # 0.7 10*3/uL (0.1-1.0); NEUT # 6.8 10*3/uL (2.3-7.9); NEUT % 75.2 % (47.0-73.0); PLATELET COUNT AUTOMATED 170 10*3/uL (130-400); PROTHROMBIN TIME 18.7 SECONDS (9.0-12.4); RED BLOOD COUNT 3.25 10*6/uL (4.50-5.90); RED CELL DISTRI WIDTH 12.9 % (0-14.5)
[2016-11-10 06:27] LABS: ABG BASE EXCESS 3.2 mmol/L (-2.0-2.0); ABG CO2 CONTENT 28.2 mmol/L (23-27); ARTERIAL BLOOD GAS PH 7.429 (7.35-7.45)
[2016-11-10 06:28] LABS: ABG TEMPERATURE 100.4 F (98.0-99.0)
[2016-11-10 06:30] LABS: ALBUMIN 2.5 gm/dl (3.1-4.5); ALKALINE PHOSPHATASE 38 U/L (45-117); BILIRUBIN, TOTAL 0.4 mg/dl (0.2-1.0); BUN 12 mg/dl (7-24); CARBON DIOXIDE 29 mmol/L (21-32); CHLORIDE 104 mmol/L (98-107); CPK 278 U/L (39-308); EST GLOM FILT AFRICAN AMERICAN > 60 ml/min; GLUCOSE 118 mg/dL (65-99); POTASSIUM 3.6 mmol/L (3.5-5.1); SGOT/AST 23 IU/L (3-35); SGPT/ALT 36 U/L (12-78); SODIUM 144 mmol/L (136-145); TOTAL PROTEIN 5.9 gm/dL (6.4-8.2)
[2016-11-11] VITALS: BP 142/80
[2016-11-11 04:04] VITALS: BP 129/82
[2016-11-11 06:12] LABS: BASO % 0.1 % (0.0-1.0); EOS # 0.1 10*3/uL (0.0-0.4); EOS % 1.4 % (1.0-4.0); HEMATOCRIT 29.5 % (42.0-52.0); HEMOGLOBIN 9.8 g/dl (14.0-18.0); IG # 0.1 10*3/uL (0.0-0.1); LYMPH # 1.3 10*3/uL (1.3-4.4); LYMPH % 15.4 % (27.0-41.0); MEAN CELL VOLUME 91.3 fl (80.0-94.0); MEAN CORPUSCULAR HGB 30.3 pg (27.0-31.0); MEAN CORPUSCULAR HGB CONC 33.2 g/dl (33.0-37.0); MEAN PLATELET VOLUME 11.5 fl (9.6-12.3); MONO # 0.8 10*3/uL (0.1-1.0); NEUT # 6.4 10*3/uL (2.3-7.9); NEUT % 73.5 % (47.0-73.0); PLATELET COUNT AUTOMATED 213 10*3/uL (130-400); RED BLOOD COUNT 3.23 10*6/uL (4.50-5.90); RED CELL DISTRI WIDTH 12.8 % (0-14.5); WHITE BLOOD COUNT 8.7 10*3/uL (4.8-10.8)
[2016-11-11 06:35] LABS: BUN 8 mg/dl (7-24); CARBON DIOXIDE 31 mmol/L (21-32); CHLORIDE 104 mmol/L (98-107); EST GLOM FILT AFRICAN AMERICAN > 60 ml/min; GLUCOSE 104 mg/dL (65-99); POTASSIUM 3.5 mmol/L (3.5-5.1); SODIUM 142 mmol/L (136-145)
[2016-11-11 06:42] LABS: INTERNATIONAL NORM RATIO 1.3 (2.0-3.5); PROTHROMBIN TIME 14.5 SECONDS (9.0-12.4)
[2016-11-11 08:00] VITALS: BP 128/78
[2016-11-11 12:00] VITALS: BP 128/86
[2016-11-11 16:00] VITALS: BP 127/82
[2016-11-11 20:00] VITALS: BP 108/68
[2016-11-12] VITALS: BP 138/81
[2016-11-12 04:00] VITALS: BP 106/63
[2016-11-12 06:46] LABS: BUN 13 mg/dl (7-24); CARBON DIOXIDE 30 mmol/L (21-32); CHLORIDE 103 mmol/L (98-107); EST GLOM FILT AFRICAN AMERICAN > 60 ml/min; GLUCOSE 113 mg/dL (65-99); POTASSIUM 3.6 mmol/L (3.5-5.1); SODIUM 140 mmol/L (136-145)
[2016-11-12 06:52] LABS: INTERNATIONAL NORM RATIO 1.4 (2.0-3.5); PROTHROMBIN TIME 14.9 SECONDS (9.0-12.4)
[2016-11-12 08:00] VITALS: BP 120/80; BP 126/80
[2016-11-12 12:00] VITALS: BP 114/67
[2016-11-12 16:00] VITALS: BP 120/69
[2016-11-12 20:00] VITALS: BP 109/63
[2016-11-13] VITALS: BP 145/95
[2016-11-13 04:00] VITALS: BP 148/96
[2016-11-13 06:18] LABS: INTERNATIONAL NORM RATIO 1.6 (2.0-3.5); PROTHROMBIN TIME 17.7 SECONDS (9.0-12.4)
[2016-11-13 08:00] VITALS: BP 132/92
[2016-11-13 08:36] LABS: BASO % 0.5 % (0.0-1.0); EOS # 0.5 10*3/uL (0.0-0.4); EOS % 5.9 % (1.0-4.0); HEMATOCRIT 34.3 % (42.0-52.0); HEMOGLOBIN 11.7 g/dl (14.0-18.0); LYMPH # 1.6 10*3/uL (1.3-4.4); LYMPH % 19.8 % (27.0-41.0); MEAN CELL VOLUME 90.3 fl (80.0-94.0); MEAN CORPUSCULAR HGB 30.8 pg (27.0-31.0); MEAN CORPUSCULAR HGB CONC 34.1 g/dl (33.0-37.0); MEAN PLATELET VOLUME 10.7 fl (9.6-12.3); MONO # 0.7 10*3/uL (0.1-1.0); MONO % 8.4 % (3.0-9.0); NEUT # 5.3 10*3/uL (2.3-7.9); PLATELET COUNT AUTOMATED 270 10*3/uL (130-400); WHITE BLOOD COUNT 8.1 10*3/uL (4.8-10.8)
[2016-11-13 08:51] LABS: ALKALINE PHOSPHATASE 45 U/L (45-117); BILIRUBIN, TOTAL 0.6 mg/dl (0.2-1.0); BUN 9 mg/dl (7-24); CARBON DIOXIDE 29 mmol/L (21-32); CHLORIDE 104 mmol/L (98-107); EST GLOM FILT AFRICAN AMERICAN > 60 ml/min; GLUCOSE 94 mg/dL (65-99); POTASSIUM 3.7 mmol/L (3.5-5.1); SGOT/AST 21 IU/L (3-35); SGPT/ALT 37 U/L (12-78); SODIUM 143 mmol/L (136-145); TOTAL PROTEIN 6.8 gm/dL (6.4-8.2)
[2016-11-13 12:00] VITALS: BP 136/84
[2016-11-13 16:00] VITALS: BP 100/57
[2016-11-13 20:00] VITALS: BP 107/66
[2016-11-14] VITALS: BP 132/84
[2016-11-14 04:00] VITALS: BP 139/90
[2016-11-14 06:54] LABS: INTERNATIONAL NORM RATIO 1.7 (2.0-3.5); PROTHROMBIN TIME 18.7 SECONDS (9.0-12.4)
[2016-11-14 08:00] VITALS: BP 149/84
== END 2016-11-14 12:29 | disposition left against medical advice (07) | DRG 917 ==
LOC: ED 23:24 → EDHOLD 11-05 01:32 → ICCU 11-05 01:32
PROVIDERS: Emergency Medicine; Family Medicine; Internal Medicine; Internal Medicine Critical Care Medicine; Internal Medicine Hospice and Palliative Medicine
PROC: 0BH17EZ Insertion of Endotracheal Airway into Trachea, Via Natural or Artificial Opening (ICD-10-PCS; principal; 2016-11-05)
PROC: 5A1955Z Respiratory Ventilation, Greater than 96 Consecutive Hours (ICD-10-PCS; principal; 2016-11-05)
PROC: 02HV33Z Insertion of Infusion Device into Superior Vena Cava, Percutaneous Approach (ICD-10-PCS; 2016-11-09)
DX: T43.222A Poisoning by selective serotonin reuptake inhibitors, intentional self-harm, initial encounter (principal); G93.41 Metabolic encephalopathy; J96.02 Acute respiratory failure with hypercapnia; R56.9 Unspecified convulsions; R65.10 Systemic inflammatory response syndrome (SIRS) of non-infectious origin without acute organ dysfunction; M62.82 Rhabdomyolysis; E44.1 Mild protein-calorie malnutrition; E87.1 Hypo-osmolality and hyponatremia; I82.509 Chronic embolism and thrombosis of unspecified deep veins of unspecified lower extremity; F33.9 Major depressive disorder, recurrent, unspecified; F10.129 Alcohol abuse with intoxication, unspecified; Z53.21 Procedure and treatment not carried out due to patient leaving prior to being seen by health care provider; D64.9 Anemia, unspecified; I10 Essential (primary) hypertension; E78.5 Hyperlipidemia, unspecified; F12.10 Cannabis abuse, uncomplicated; J20.9 Acute bronchitis, unspecified; F34.1 Dysthymic disorder; F60.3 Borderline personality disorder; I45.81 Long QT syndrome; E87.6 Hypokalemia; E83.39 Other disorders of phosphorus metabolism; R73.9 Hyperglycemia, unspecified; E83.41 Hypermagnesemia; Z79.01 Long term (current) use of anticoagulants; Z86.73 Personal history of transient ischemic attack (TIA), and cerebral infarction without residual deficits; Z82.49 Family history of ischemic heart disease and other diseases of the circulatory system; Z79.82 Long term (current) use of aspirin; Z79.899 Other long term (current) drug therapy; Z68.25 Body mass index [BMI] 25.0-25.9, adult

== ENCOUNTER 2017-02-01 10:46 | Emergency (ER) | payer OTHER ==
[~2017-02-01] VITALS: Ht 175.2 cm; Wt 75.7 kg
[~2017-02-01 10:46] MED LIST changes: +ASPIRIN ADULT L81 M2 PO; +CELEXA10 MG PO; +COUMADIN6 M2 PO; +LOPID600 M1 PO; +LOTREL 10 MG-401 CA1 PO; +NEURONTIN800 MG PO; +VALIUM10 MG PO; +XANAX1 MG PO; +ZESTRIL20 MG PO; +ZYLOPRIM100 MG PO
[2017-02-01] MEDS ORDERED: CEPHALEXIN500 M1 PO (12:32)
[2017-02-01] MEDS ORDERED: HYDROCODONE BIT1 T11 PO ×2 (12:32→12:35)
== END 2017-02-01 13:25 | disposition home or self-care (01) ==
LOC: ED 10:46
DX: M70.21 Olecranon bursitis, right elbow (principal); F17.200 Nicotine dependence, unspecified, uncomplicated; Z90.2 Acquired absence of lung [part of]; Z79.82 Long term (current) use of aspirin; Z79.899 Other long term (current) drug therapy; Y93.89 Activity, other specified

== ENCOUNTER 2017-02-09 22:20 | Emergency (ER) | payer OTHER ==
[~2017-02-09] VITALS: Ht 175.2 cm; Wt 81.6 kg
[~2017-02-09 22:20] MED LIST changes: +CEPHALEXIN500 M1 PO
== END 2017-02-10 02:59 ==
LOC: ED 22:20
DX: S00.81XA Abrasion of other part of head, initial encounter (principal); F10.129 Alcohol abuse with intoxication, unspecified; F32.9 Major depressive disorder, single episode, unspecified; Z86.73 Personal history of transient ischemic attack (TIA), and cerebral infarction without residual deficits; Z86.718 Personal history of other venous thrombosis and embolism; E78.5 Hyperlipidemia, unspecified; I10 Essential (primary) hypertension; I25.2 Old myocardial infarction; F17.200 Nicotine dependence, unspecified, uncomplicated; Z79.01 Long term (current) use of anticoagulants; Z79.82 Long term (current) use of aspirin; Z79.899 Other long term (current) drug therapy; Y08.89XA Assault by other specified means, initial encounter; Y93.89 Activity, other specified; Y92.9 Unspecified place or not applicable; Y99.9 Unspecified external cause status

== ENCOUNTER 2017-06-09 01:27 | Inpatient (IN) | payer OTHER ==
[2017-06-09] VITALS (7 sets, daily range): BP systolic 93–129; BP diastolic 47–78
[~2017-06-09] VITALS: Ht 175.2 cm; Wt 80.0 kg
[2017-06-09 02:12] LABS: BASO # 0.1 10*3/uL (0.0-0.1); BASO % 0.5 % (0.0-1.0); EOS # 0.2 10*3/uL (0.0-0.4); EOS % 2.2 % (1.0-4.0); HEMATOCRIT 37.8 % (42.0-52.0); LYMPH # 2.7 10*3/uL (1.3-4.4); LYMPH % 28.4 % (27.0-41.0); MEAN CELL VOLUME 90.4 fl (80.0-94.0); MEAN CORPUSCULAR HGB 31.1 pg (27.0-31.0); MEAN CORPUSCULAR HGB CONC 34.4 g/dl (33.0-37.0); MEAN PLATELET VOLUME 10.4 fl (9.6-12.3); MONO # 0.4 10*3/uL (0.1-1.0); MONO % 4.3 % (3.0-9.0); NEUT % 64.3 % (47.0-73.0); PLATELET COUNT AUTOMATED 252 10*3/uL (130-400); RED BLOOD COUNT 4.18 10*6/uL (4.50-5.90); RED CELL DISTRI WIDTH 13.9 % (0-14.5); WHITE BLOOD COUNT 9.4 10*3/uL (4.8-10.8)
[2017-06-09 02:28] LABS: ALBUMIN 3.8 gm/dl (3.1-4.5); ALKALINE PHOSPHATASE 56 U/L (45-117); BUN 9 mg/dl (7-24); CHLORIDE 104 mmol/L (98-107); CREATININE 1.11 mg/dL (0.70-1.30); POTASSIUM 3.4 mmol/L (3.5-5.1); SGOT/AST 47 IU/L (3-35); SGPT/ALT 47 U/L (12-78); SODIUM 140 mmol/L (136-145)
[2017-06-09 02:29] LABS: ACT PARTIAL THROMBO TIME 67.1 SECONDS (20.8-31.5); TROPONIN I < 0.015 ng/ml (<0.045)
[2017-06-09 02:31] LABS: INTERNATIONAL NORM RATIO 5.8 (2.0-3.5)
[2017-06-09 06:17] LABS: CHOLESTEROL 191 mg/dL (<200); FREE T4 0.98 ng/dl (0.76-1.46); HDL CHOLESTEROL 78 mg/dl (40-60); LDL CHOLESTEROL 81 mg/dL (9-159); TRIGLYCERIDES 159 mg/dl (<150); VLDL CHOLESTEROL 32 mg/dL (6-40)
[2017-06-09 06:31] LABS: TROPONIN I < 0.015 ng/ml (<0.045)
[2017-06-09 07:45] LABS: BASO % 0.5 % (0.0-1.0); EOS # 0.3 10*3/uL (0.0-0.4); EOS % 4.5 % (1.0-4.0); HEMATOCRIT 35.4 % (42.0-52.0); HEMOGLOBIN 11.8 g/dl (14.0-18.0); LYMPH # 2.3 10*3/uL (1.3-4.4); LYMPH % 38.8 % (27.0-41.0); MEAN CELL VOLUME 91.5 fl (80.0-94.0); MEAN CORPUSCULAR HGB 30.5 pg (27.0-31.0); MEAN CORPUSCULAR HGB CONC 33.3 g/dl (33.0-37.0); MEAN PLATELET VOLUME 10.5 fl (9.6-12.3); MONO # 0.3 10*3/uL (0.1-1.0); MONO % 5.7 % (3.0-9.0); NEUT % 50.3 % (47.0-73.0); PLATELET COUNT AUTOMATED 213 10*3/uL (130-400); RED BLOOD COUNT 3.87 10*6/uL (4.50-5.90)
[2017-06-09 08:15] LABS: BUN 10 mg/dl (7-24); CHLORIDE 112 mmol/L (98-107); CREATININE 1.05 mg/dL (0.70-1.30); PHOSPHOROUS 4.4 mg/dL (2.5-4.9); POTASSIUM 3.7 mmol/L (3.5-5.1); SODIUM 145 mmol/L (136-145)
[2017-06-09 08:27] LABS: INTERNATIONAL NORM RATIO 5.8 (2.0-3.5)
[2017-06-09 10:56] LABS: VITAMIN D, 25-HYDROXY 16.1 ng/mL (30-100)
== END 2017-06-09 12:56 | disposition left against medical advice (07) | DRG 204 ==
LOC: ED 01:27 → EDHOLD 03:02 → 5E 03:07
PROVIDERS: Internal Medicine; Student in an Organized Health Care Education/Training Program; ADMIT Internal Medicine
DX: R04.2 Hemoptysis (principal); D68.59 Other primary thrombophilia; D68.9 Coagulation defect, unspecified; I95.9 Hypotension, unspecified; F33.9 Major depressive disorder, recurrent, unspecified; E83.51 Hypocalcemia; D64.9 Anemia, unspecified; I25.118 Atherosclerotic heart disease of native coronary artery with other forms of angina pectoris; T45.515A Adverse effect of anticoagulants, initial encounter; F10.129 Alcohol abuse with intoxication, unspecified; E78.5 Hyperlipidemia, unspecified; I10 Essential (primary) hypertension; K21.9 Gastro-esophageal reflux disease without esophagitis; Z53.20 Procedure and treatment not carried out because of patient's decision for unspecified reasons; F41.9 Anxiety disorder, unspecified; M1A.9XX0 Chronic gout, unspecified, without tophus (tophi); F17.210 Nicotine dependence, cigarettes, uncomplicated; F12.10 Cannabis abuse, uncomplicated; R73.9 Hyperglycemia, unspecified; E87.6 Hypokalemia; Z71.6 Tobacco abuse counseling; Y92.89 Other specified places as the place of occurrence of the external cause; I25.2 Old myocardial infarction; Z86.73 Personal history of transient ischemic attack (TIA), and cerebral infarction without residual deficits; Z86.718 Personal history of other venous thrombosis and embolism; Z95.2 Presence of prosthetic heart valve; Z79.01 Long term (current) use of anticoagulants; Z79.82 Long term (current) use of aspirin; Z79.899 Other long term (current) drug therapy; Z82.49 Family history of ischemic heart disease and other diseases of the circulatory system

== ENCOUNTER → 2017-11-08 | Outpatient (CLI) | payer OTHER ==
[2017-11-08 10:18] LABS: BASO # 0.1 10*3/uL (0.0-0.1); BASO % 0.8 % (0.0-1.0); EOS # 0.3 10*3/uL (0.0-0.4); EOS % 4.3 % (1.0-4.0); HEMATOCRIT 45.7 % (42.0-52.0); HEMOGLOBIN 14.9 g/dl (14.0-18.0); LYMPH # 1.8 10*3/uL (1.3-4.4); LYMPH % 23.3 % (27.0-41.0); MEAN CELL VOLUME 92.7 fl (80.0-94.0); MEAN CORPUSCULAR HGB 30.2 pg (27.0-31.0); MEAN CORPUSCULAR HGB CONC 32.6 g/dl (33.0-37.0); MEAN PLATELET VOLUME 10.7 fl (9.6-12.3); MONO # 0.7 10*3/uL (0.1-1.0); MONO % 9.4 % (3.0-9.0); NEUT # 4.8 10*3/uL (2.3-7.9); NEUT % 62.1 % (47.0-73.0); PLATELET COUNT AUTOMATED 264 10*3/uL (130-400); RED BLOOD COUNT 4.93 10*6/uL (4.50-5.90); RED CELL DISTRI WIDTH 14.2 % (0-14.5); WHITE BLOOD COUNT 7.7 10*3/uL (4.8-10.8)
[2017-11-08 10:38] LABS: ALKALINE PHOSPHATASE 65 U/L (45-117); BUN 10 mg/dl (7-24); CHLORIDE 104 mmol/L (98-107); CHOLESTEROL 245 mg/dL (<200); CREATININE 0.85 mg/dL (0.70-1.30); HDL CHOLESTEROL 108 mg/dl (40-60); LDL CHOLESTEROL 120 mg/dL (9-159); POTASSIUM 4.4 mmol/L (3.5-5.1); SGOT/AST 57 IU/L (3-35); SGPT/ALT 95 U/L (12-78); SODIUM 137 mmol/L (136-145); TOTAL PROTEIN 7.7 gm/dL (6.4-8.2); TRIGLYCERIDES 84 mg/dl (<150); VLDL CHOLESTEROL 17 mg/dL (6-40)
== END | disposition home or self-care (01) ==
LOC: LAB 08:32
PROVIDERS: Internal Medicine
DX: J44.9 Chronic obstructive pulmonary disease, unspecified (principal); E78.2 Mixed hyperlipidemia; I25.2 Old myocardial infarction; I10 Essential (primary) hypertension